=== PATIENT | female | born 1985 | race Caucasian/White ===

== ENCOUNTER 2019-09-26 21:58 | Emergency (ER) | payer OTHER ==
[~2019-09-26] VITALS: Ht 160 cm; Wt 60.0 kg
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
[2019-09-26] MEDS ORDERED: morphine INJ 10 MG/ML 1ML (SYR OR VIAL) IM STA (22:24)
[2019-09-26] MEDS ORDERED: TETANUS,DIPTH,PERTUSS P/F (BOOSTRIX) 0.5 ML VIAL IM ONE (22:30)
[2019-09-26] MEDS ORDERED: SILVER SULFADIAZINE 50 GM CREAM TOP SCH (22:30)
[2019-09-26 23:25] VITALS: BP 128/80
[2019-09-26] MEDS ORDERED: oxyCODONE/APAP 5/325MG (PERCOCET 5) TABLET PO ONE (23:30)
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
== END 2019-09-26 23:26 | disposition home or self-care (01) ==
LOC: ER FS 22:08
DX: T23.071A Burn of unspecified degree of right wrist, initial encounter (principal); T24.011A Burn of unspecified degree of right thigh, initial encounter; T24.021A Burn of unspecified degree of right knee, initial encounter; S80.01XA Contusion of right knee, initial encounter; Z88.6 Allergy status to analgesic agent; Z23 Encounter for immunization; Z88.8 Allergy status to other drugs, medicaments and biological substances; V40.5XXA Car driver injured in collision with pedestrian or animal in traffic accident, initial encounter; Y92.411 Interstate highway as the place of occurrence of the external cause
CPT/HCPCS: 73562; 90715